=== PATIENT | male | born 1960 | race Caucasian/White ===

== ENCOUNTER 2020-08-18 08:25 | Outpatient (REF) | payer OTHER, SELFPAY ==
[2020-08-18 11:19] LABS: Glucose Urine UA NEG (NEG); Leukocyte Esterase Urine NEG (NEG); Nitrite Urine NEG (NEG); Specific Gravity - Urine 1.025 (1.005-1.025); Urine Blood NEG (NEG); Urine Ketones NEG (NEG); Urine Protein TRACE MG/DL (NEG-TRACE)
[2020-08-18 11:22] LABS: Hematocrit 46.5 % (42-52); Hemoglobin 14.7 g/dl (14.0-18.0); Mean Corpuscular HGB Conc 31.6 g/dl (31.0-36.0); Mean Corpuscular Hemoglobin 26.7 pg (27.0-33.0); Mean Corpuscular Volume 84.5 fL (80-98); Platelet Count 170 X10*3/uL (160-400); Red Cell Distribution Width 13.3 % (11.0-16.0)
[2020-08-18 11:22] LABS: Appearance Urine CLEAR; Color Urine YELLOW
[2020-08-18 11:34] LABS: Creatinine Urine 76.16 mg/dL; Microalbum/Creatinine Ratio Ur 466.1 ug/mg cr; Protein/Creatinine Ratio, Ur 0.71 (<0.2); Total Protein Urine Random 54 mg/dL (<12)
[2020-08-18 11:43] LABS: RBC Urine 0-2 /HPF (0); WBC Urine 0-2 /HPF (0-4)
[2020-08-18 12:06] LABS: Anion Gap 15 (12-20); Blood Urea Nitrogen 19 mg/dL (9-16); Calcium 9.2 mg/dL (8.4-10.2); Carbon Dioxide 22 mmol/L (22-29); Chloride 109 mmol/L (96-108); Estimated Glomerular Filt Rate 58; Magnesium 1.9 mg/dL (1.6-2.6); Phosphorus 2.4 mg/dL (2.7-4.5); Potassium 4.8 mmol/L (3.3-5.1); Sodium 141 mmol/L (135-145)
[2020-08-18 13:03] LABS: Vitamin D 25-OH Total 29.6 ng/mL (>30)
[2020-08-20 09:12] LABS: PTHI 53 pg/mL (14-64)
== END 2020-08-18 08:26 | disposition home or self-care (01) ==
LOC: HO.HMGCLDS 08:25
PROVIDERS: PCP Internal Medicine Endocrinology, Diabetes & Metabolism; Visit Provider Internal Medicine Nephrology
DX: I12.9 Hypertensive chronic kidney disease with stage 1 through stage 4 chronic kidney disease, or unspecified chronic kidney disease (principal); N18.31 Chronic kidney disease, stage 3a
CPT/HCPCS: 36415; 80051; 81001; 82040; 82043; 82306; 82310; 82565; 83735; 83970; 84100; 84156; 84520; 85027; 87086